=== PATIENT | male | born 1960 | race Caucasian/White ===

== ENCOUNTER 2021-08-14 15:21 | Outpatient (CLI) | payer BC ==
[2021-08-14 16:00] LABS: #Eosinphils 0.1 10x3/uL (0.0-0.5); #Monocytes 0.6 10x3/uL (0.0-1.1); #Neutrophils 3.7 10x3/uL (1.5-8.4); %Basophils 0.6 % (0.0-2.0); %Eosinophils 1.1 % (0.0-6.0); %Lymphocytes 31.8 % (18.0-47.0); %Monocytes 8.9 % (0.0-10.0); %Neutrophils 57.1 % (40.0-75.0); Hemoglobin 16.2 g/dL (13.5-17.5); Mean Corpuscular HGB CONC 34.8 g/dL (32.0-36.0); Mean Corpuscular Hemoglobin 30.9 pg (27.0-33.0); Mean Corpuscular Volume 88.6 fl (81.2-95.1); Mean Platelet Volume 9.7 fl (7.4-10.4); Platelet Count 202 10x3/uL (150-450); RBC Distribution Width 12.3 % (11.5-14.5); Red Blood Cell (RBC) Count 5.25 10x6/uL (4.32-5.72); White Blood Cell (WBC) Count 6.5 10x3/uL (3.5-10.5)
[2021-08-14 16:28] LABS: ALT (SGPT) 30 U/L (8-55); AST (SGOT) 23 U/L (5-34); Albumin 4.4 g/dL (3.4-4.8); Alkaline Phosphatase 55 U/L (40-110); Anion Gap 14 mmol/L (10-20); BUN (Urea Nitrogen) 14 mg/dL (8.4-25.7); Bilirubin, Total 0.6 mg/dL (0.2-1.2); Calc. Creatinine Clearance 0 mL/min (70-130); Calcium 9.6 mg/dL (7.8-10.44); Carbon Dioxide 24 mmol/L (23-31); Chloride 105 mmol/L (98-107); Globulin 2.3 g/dL (2.4-3.5); Glucose 142 mg/dL (80-115); Potassium 4.3 mmol/L (3.5-5.1); Protein, Total 6.7 g/dL (5.8-8.1); Sodium 139 mmol/L (136-145)
== END 2021-08-14 15:22 | disposition home or self-care (01) ==
LOC: LABBT 15:21
PROVIDERS: ATTEND Internal Medicine Cardiovascular Disease
DX: Z01.812 Encounter for preprocedural laboratory examination (principal); Z20.822 Contact with and (suspected) exposure to COVID-19
CPT/HCPCS: 80053; 85025; U0003; U0005

== ENCOUNTER 2021-08-16 05:56 | Observation (INO) | payer BC ==
[2021-08-15 09:41] VITALS: BMI 28.7
[2021-08-16] MEDS ORDERED: Midazolam HCl 2 mg/2 ml Vial ONE (09:05)
[2021-08-16] MEDS ORDERED: Fentanyl 100 MCG/2 ML VIAL ONE (09:05)
[2021-08-16] MEDS ORDERED: Heparin 10,000 UNITS/ 10 ML VIAL ONE ×2 (09:39→09:59)
[2021-08-16] MEDS ORDERED: Nitroglycerin 100MG/250ML BOT 250 ML ONE (09:41)
[2021-08-16] MEDS ORDERED: Iopamidol 370 76% 100 ML VIAL ONE (10:06)
[2021-08-16] MEDS ORDERED: Clopidogrel Bisulfate 300 MG TAB ONE (10:37)
[2021-08-16] MEDS ORDERED: Sodium Chloride 0.9% 1,000 ML IV SCH (12:00)
[2021-08-16] MEDS: glyBURIDE 5 MG TAB PO SCH (18:40)
[2021-08-16] MEDS: Icosapent Ethyl 1 GM CAPSULE PO SCH (18:42)
[2021-08-16] MEDS: metFORMIN 500 MG TAB PO SCH (18:43)
[2021-08-16] MEDS ORDERED: Aripiprazole 10 MG TAB PO SCH (21:00)
[2021-08-16] MEDS ORDERED: Lisinopril 5 MG TAB PO SCH (21:00)
[2021-08-16] MEDS ORDERED: Rosuvastatin 20 MG TAB PO SCH (21:00)
[2021-08-16] MEDS: Insulin Glargine 30 UNITS/0.3 ML VIAL SC SCH (21:07)
[2021-08-17] MEDS ORDERED: Bupropion 150 MG XL TAB PO SCH (09:00)
[2021-08-17] MEDS ORDERED: Aspirin 81 mg Enteric Coated Tablet PO SCH (09:00)
[2021-08-17] MEDS ORDERED: GLUCOSAMINE PO SCH (09:00)
[2021-08-17] MEDS ORDERED: lamoTRIgine 100 MG TAB PO SCH (09:00)
[2021-08-17] MEDS ORDERED: Clopidogrel Bisulfate 75 MG TAB PO SCH (09:00)
[2021-08-17] MEDS ORDERED: Empagliflozin 10 MG TAB PO SCH (09:00)
[2021-08-17] MEDS ORDERED: Escitalopram Oxalate 10 mg Tablet PO SCH (09:00)
[2021-08-17] MEDS ORDERED: ADDERALL 20 MG PO SCH (09:00)
[2021-08-17] MEDS ORDERED: CHONDROITIN PO SCH (09:00)
[2021-08-17] MEDS ORDERED: Multivitamin W/ Minerals 1 TAB PO SCH (09:00)
[2021-08-17] MEDS: Icosapent Ethyl 1 GM CAPSULE PO SCH (09:19)
[2021-08-17] MEDS: metFORMIN 500 MG TAB PO SCH (09:20)
[2021-08-17] MEDS: glyBURIDE 5 MG TAB PO SCH (09:21)
[2021-08-17] MEDS: Insulin Glargine 30 UNITS/0.3 ML VIAL SC SCH (09:26)
[2021-08-17 09:59] VITALS: BP 140/78; TEMP 97.8
[2021-08-19] MEDS ORDERED: SEMAGLUTIDE 1 MG/0.75 ML SC SCH (09:00)
== END 2021-08-17 12:57 | disposition home or self-care (01) ==
LOC: CCL 05:56 → 2NO 10:55
PROVIDERS: ADMIT Internal Medicine Cardiovascular Disease; ATTEND Internal Medicine Cardiovascular Disease
PROC: 027034Z Dilation of Coronary Artery, One Artery with Drug-eluting Intraluminal Device, Percutaneous Approach (ICD-10-PCS; principal; 2021-08-16)
PROC: 4A023N7 Measurement of Cardiac Sampling and Pressure, Left Heart, Percutaneous Approach (ICD-10-PCS; 2021-08-16)
PROC: B2111ZZ Fluoroscopy of Multiple Coronary Arteries using Low Osmolar Contrast (ICD-10-PCS; 2021-08-16)
DX: I25.110 Atherosclerotic heart disease of native coronary artery with unstable angina pectoris (principal); I25.82 Chronic total occlusion of coronary artery; I10 Essential (primary) hypertension; E78.2 Mixed hyperlipidemia; E78.00 Pure hypercholesterolemia, unspecified; E11.9 Type 2 diabetes mellitus without complications; Z79.02 Long term (current) use of antithrombotics/antiplatelets; Z79.4 Long term (current) use of insulin; Z79.82 Long term (current) use of aspirin; Z79.84 Long term (current) use of oral hypoglycemic drugs; Z79.899 Other long term (current) drug therapy; Z95.5 Presence of coronary angioplasty implant and graft
CPT/HCPCS: 36416; 85347; 92928; 93005; 93458; 97139; 99152; 99153; C1725; C1769; C1874; C9600; G0378; J1644; J1815; J2250; J3010; Q9967

== ENCOUNTER 2024-01-27 12:32 | Outpatient (CLI) | payer BC ==
[2024-01-27] MEDS ORDERED: Magnevist 469MG/ML 20 ML VIAL ONE (13:21)
== END 2024-01-27 12:33 | disposition home or self-care (01) ==
LOC: MRI 12:32
PROVIDERS: ATTEND Family Medicine Sports Medicine
DX: R29.898 Other symptoms and signs involving the musculoskeletal system (principal); M47.812 Spondylosis without myelopathy or radiculopathy, cervical region; I67.89 Other cerebrovascular disease
CPT/HCPCS: 36415; 70551; 71552; 82565